=== PATIENT | female | born 1950 | race Caucasian/White ===

== ENCOUNTER 2018-01-27 14:07 | Emergency (ER) | payer MEDICARE, MEDICAID ==
[2018-01-27] MEDS ORDERED: Albuterol/Ipratropium 3.0-0.5 MG/3 ML Neb Soln NEB ONE (15:36)
[2018-01-27] MEDS ORDERED: methylPREDNISolone Sodium Succinate 125 MG/2 ML SDV IVPUSH ONE (15:36)
[2018-01-27 15:49] VITALS: BP 114/52
[2018-01-27] MEDS: Sodium Chloride 0.9% 10 ML Syringe FLUSH PRN ×2 (16:09→17:20)
[2018-01-27] MEDS ORDERED: Furosemide 40 MG/4 ML VIAL IVPUSH ONE (16:35)
[2018-01-27] MEDS ORDERED: cefTRIAXone 1 GM in Sodium Chloride 0.9% 100 ML IV ONE (16:36)
--- NOTE | 2018-01-27 17:48 | EDM.PDOC ---
ED HPI GENERAL MEDICAL PROBLEM - General Chief Complaint: Respiratory Problem Stated Complaint: fever, SOB Time Seen by Provider: 01/27/18 14:20 Source of Information: Reports: Other (retirement staff) History Limitations: Reports: Altered Mental Status - History of Present Illness INITIAL COMMENTS - FREE TEXT/NARRATIVE: Patient referred to ER from [facility] after episode of increased SOB (RR 40)and lower O2 sats (in 80s). Patient does not normally require oxygen. Staff took BP on site and noted systolic reading near 200, however EMS crew noted systolic in 130s during transfer. Patient did have large episode of diarrhea as well as one emesis prior to EMS transfer. Received Zofran. Patient has cognitive deficit secondary to previous strokes and is unable to give accurate history. Denied all problems during ROS. She denied feeling SOB while experiencing elevated respiratory rate and using accessory muscles to breath. Staff at [facility] did not note any other unusual changes. Patient appeared to be in usual health earlier in the day prior to the above episode. Full code per NH record. Onset: Sudden Treatments GLASS ETCHER: Reports: Other (see below) Other Treatments GLASS ETCHER: zofran - Related Data Allergies Allergy/AdvReac Type Severity Reaction Status Date / Time doxycycline Allergy Rash Verified 12/24/15 11:32 nicotine [From Habitrol] Allergy Rash Verified 12/24/15 11:32 Home Meds: Home Meds Citalopram Hydrobromide [Celexa] 20 mg PO DAILY 07/15/15 [History] Aspirin [Ecotrin] 81 mg PO DAILY 10/30/15 [History] Clopidogrel [Plavix] 75 mg PO DAILY 10/30/15 [History] Isosorbide Mononitrate [Imdur] 30 mg PO DAILY 10/30/15 [History] amLODIPine [Norvasc] 2.5 mg PO DAILY 10/30/15 [History] atorvaSTATin [Lipitor] 40 mg PO BEDTIME 10/30/15 [History] Acetaminophen 650 mg PO Q4HR PRN 12/24/15 [History] Albuterol/Ipratropium [DuoNeb 3.0-0.5 MG/3 ML] 3 ml NEB Q4HRRT PRN 12/24/15 [ History] Metoprolol Tartrate 50 mg PO BID 12/24/15 [History] Nitroglycerin [Nitrostat] 0.4 mg SL Q5M PRN 12/24/15 [History] hydrOXYzine Pamoate [Vistaril] 25 mg PO BID 12/24/15 [History] Acetaminophen 650 mg PO Q6HR PRN 01/27/18 [History] Bisacodyl [Dulcolax] 5 mg PO Q12H PRN 01/27/18 [History] Calcium Carbonate [Tums] 1,000 mg PO Q6H 01/27/18 [History] Cholecalciferol (Vitamin D3) [Vitamin D3] 2,000 unit PO DAILY 01/27/18 [History] Cranberry Extract [Cranberry] 1,000 mg PO BID 01/27/18 [History] Mirtazapine [Remeron] 15 mg PO BEDTIME 01/27/18 [History] Ondansetron [Zofran ODT] 8 mg PO Q6H PRN 01/27/18 [History] Sennosides [Senna] 2 tab PO BID 01/27/18 [History] Past Medical History HEENT History: Reports: Allergic Rhinitis, Impaired Vision, Other (See Below) Other HEENT History: Dry eye syndrome Cardiovascular History: Reports: Arrhythmia, CAD, Heart Valve Replacement, High Cholesterol, Syncope, Other (See Below) Other Cardiovascular History: 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 Respiratory History: Reports: COPD, Intubation, Previous, Pneumothorax, Pulmonary Fibrosis, Other (See Below) Other Respiratory History: Possible left upper lobe pulmonary nodule/mass by chest x-ray on 06/21/15 with no known follow up Gastrointestinal History: Reports: None Genitourinary History: Reports: Acute Renal Failure, Chronic Renal Insuffiency, Retention, Urinary, Urinary Incontinence, UTI, Recurrent, Other (See Below) Other Genitourinary History: Chronic renal insufficiency with acute renal failure in June 2015 [employer]GAL [employer] MANAGER History: Reports: Other (See Below) Other OB/BYN History: Symptomatic enlarged uterus, rectocele, and cystocele requiring surgery as below Musculoskeletal History: Reports: Fracture, Osteoarthritis, Osteoporosis Neurological History: Reports: CVA Other Neuro History: Cerebral atrophy and cerebral microvascular disease by CT scan Psychiatric History: Reports: Anxiety, Dementia Endocrine/Metabolic History: Reports: None Hematologic History: Reports: None Immunologic History: Reports: None Oncologic (Cancer) History: Reports: None Dermatologic History: Reports: None - Infectious Disease History Infectious Disease History: Reports: Chicken Pox, Mumps - Past Surgical History Head Surgeries/Procedures: Reports: None HEENT Surgical History: Reports: Oral Surgery, Tonsillectomy Cardiovascular Surgical History: Reports: Valve Replacement GI Surgical History: Reports: Colonoscopy Endocrine Surgical History: Reports: None Neurological Surgical History: Reports: None Musculoskeletal Surgical History: Reports: Carpal Tunnel, Ganglion Cyst, Hip Replacement Oncologic Surgical History: Reports: None Dermatological Surgical History: Reports: None - Past Imaging History Past Imaging History: Reports: Angiography, Cardiac Echo, CAT Scan, Mammogram, MRI, Swallow Study Social & Family History - Family History Cardiac: Reports: CAD, High Cholesterol, Hypertension, [place] Neurological: Reports: CVA, MS, Parkinson's Oncologic: Reports: Colon - Tobacco Use Smoking Status *Q: Former Smoker Used Tobacco, but Quit: Yes Month/Year Tobacco Last Used: 1 - Living Situation & Occupation Living situation: Reports: Single, Extended Care Facility Occupation: Employed ED ROS GENERAL - Review of Systems Review Of Systems: Unable To Obtain (see HPI for information from NH/EMS. Unable to get accurate ROS from patient.) ED EXAM, GENERAL - Physical Exam Exam: See Below Exam Limited By: Physical Impairment (left sided weakness) General Appearance: Alert, Obese, Other (appears mildly SOB) Eye Exam: Bilateral Eye: EOMI Ears: Normal External Exam, Normal Canal, Hearing Grossly Normal, Normal TMs Nose: No: Nasal Deformity, Nasal Swelling, Nasal Drainage Throat/Mouth: Normal Lips, Normal Gums, Normal Oropharynx, Normal Voice, No Airway Compromise Head: Atraumatic, Normocephalic Neck: Supple, Full Range of Motion. No: Lymphadenopathy (L), Lymphadenopathy (R ) Respiratory/Chest: Decreased Breath Sounds (throughout), Rales (bases), Rhonchi (bilateral, increased on left), Wheezing (bilateral, increased on left), Accessory Muscle Use (mild). No: Stridor, Retractions Cardiovascular: Normal Peripheral Pulses, Regular Rate, Rhythm Peripheral Pulses: 2+: Radial (L), Radial (R), Dorsalis Pedis (L), Dorsalis Pedis (R) GI/Abdominal: Normal Bowel Sounds, Soft, Non-Tender, No Distention (Female) Exam: Deferred Rectal (Female) Exam: Deferred Back Exam: No: CVA Tenderness (L), CVA Tenderness (R), Muscle Spasm, Paraspinal Tenderness, Vertebral Tenderness Extremities: Normal Capillary Refill, Other (left sided weakness arm/leg) Neurological: Alert, Sensory/Motor Deficit (left sided weakness), Other ( Patient knows she is at [facility] ER. Does not know year/month. Recalls that her son is in the [place] this weekend. ) Psychiatric: Normal Affect, Normal Mood Skin Exam: Warm, Dry, Intact, Normal Color Course - Vital Signs Last Recorded V/S: Last Vital Signs Temp 38.6 C H 01/27/18 14:07 Pulse 66 01/27/18 15:48 Resp 27 H 01/27/18 15:48 BP 114/52 L 01/27/18 15:48 Pulse Ox 91 L 01/27/18 15:48 - Orders/Labs/Meds Orders: Active Orders 24 hr Category Date Time Status RT Aerosol Therapy [RC] ASDIRECTED Care 01/27/18 15:36 Active CXR [Chest 1V Frontal] [CR] Stat Exams 01/27/18 14:15 Taken Sodium Chloride 0.9% [Saline Flush] Med 01/27/18 15:36 Active 10 ml FLUSH ASDIRECTED PRN Saline Lock Insert [OM.PC] Stat Oth 01/27/18 15:36 Ordered Medication Orders Sodium Chloride (Saline Flush) 10 ml FLUSH ASDIRECTED PRN PRN Reason: Keep Vein Open Last Admin: 01/27/18 17:20 Dose: 10 ml Admin: 01/27/18 16:09 Dose: 10 ml Labs: Laboratory Tests 01/27/18 01/27/18 01/27/18 Range/Units 14:50 15:00 15:00 WBC 13.7 H (4.0-10.2) K/uL RBC 4.74 (3.77-5.09) M/uL Hgb 14.0 (11.7-15.5) g/dL Hct 43.1 (34.0-46.0) % MCV 90.9 (84.0-98.0) fL MCH 29.5 (28.2-33.3) pg MCHC 32.5 (31.7-36.0) g/dL RDW 14.8 H (11.2-14.1) % Plt Count 112 L (150-350) K/uL Neut % (Auto) 92.9 H (45.0-80.0) % Lymph % (Auto) 2.9 L (10.0-50.0) % Pierce % (Auto) 2.1 (2.0-14.0) % Eos % (Auto) 2.0 (0.0-5.0) % Baso % (Auto) 0.1 (0.0-2.0) % Neut # (Auto) 12.76 H (1.40-7.00) K/uL Lymph # (Auto) 0.40 L (0.50-3.50) K/uL Pierce # (Auto) 0.29 (0.00-1.00) K/uL Eos # (Auto) 0.28 (0.00-0.50) K/uL Baso # (Auto) 0.01 (0.00-0.20) K/uL D-Dimer, Quantitative (0-400) ng/mL Sodium 141 (136-145) mmol/L Potassium 4.5 (3.5-5.1) mmol/L Chloride 108 H (98-107) mmol/L Carbon Dioxide 21.6 (21.0-32.0) mmol/L BUN 30 H (7-18) mg/dL Creatinine 1.78 H (0.51-1.17) mg/dL Est Cr Clr Drug Dosing 26.84 mL/min Estimated GFR (MDRD) 28 mL/min Glucose 100 (74-106) mg/dL Lactic Acid (0.4-2.0) mmol/L Calcium 8.4 L (8.5-10.1) mg/dL Total Bilirubin 0.6 (0.2-1.0) mg/dL AST 19 (15-37) U/L ALT 21 (12-78) U/L Alkaline Phosphatase 164 H (46-116) IU/L NT-Pro-B Natriuret Pep (0-125) pg/mL Total Protein 7.2 (6.4-8.2) g/dL Albumin 3.5 (3.4-5.0) g/dL Specimen Type Urinqcath Urine Color Yellow Urine Appearance Slightly cloudy Urine pH 5.0 (5.0-9.0) Ur Specific [place] 1.020 (1.005-1.030) Urine Protein 100 H (NEGATIVE) mg/dL Urine Glucose (UA) Negative (NEGATIVE) mg/dL Urine Ketones Negative (NEGATIVE) mg/dL Urine Occult Blood Moderate H (NEGATIVE) Urine Nitrite Positive H (NEGATIVE) Urine Bilirubin Negative (NEGATIVE) Urine Urobilinogen 0.2 (0.2-1.0) E.U./dL Ur Leukocyte Esterase Trace H (NEGATIVE) Urine RBC Cancelled Urine WBC Cancelled Ur Epithelial Cells Cancelled Other Crystals Cancelled Amorphous Sediment Cancelled Urine Bacteria Cancelled Hyaline Casts Cancelled Granular Casts Cancelled Urine Mucus Cancelled Urine Other Cancelled Urine Yeast Cancelled Urinalysis Comment Cancelled 01/27/18 01/27/18 01/27/18 Range/Units 15:00 15:00 15:00 WBC (4.0-10.2) K/uL RBC (3.77-5.09) M/uL Hgb (11.7-15.5) g/dL Hct (34.0-46.0) % MCV (84.0-98.0) fL MCH (28.2-33.3) pg MCHC (31.7-36.0) g/dL RDW (11.2-14.1) % Plt Count (150-350) K/uL Neut % (Auto) (45.0-80.0) % Lymph % (Auto) (10.0-50.0) % Pierce % (Auto) (2.0-14.0) % Eos % (Auto) (0.0-5.0) % Baso % (Auto) (0.0-2.0) % Neut # (Auto) (1.40-7.00) K/uL Lymph # (Auto) (0.50-3.50) K/uL Pierce # (Auto) (0.00-1.00) K/uL Eos # (Auto) (0.00-0.50) K/uL Baso # (Auto) (0.00-0.20) K/uL D-Dimer, Quantitative > 5000 H (0-400) ng/mL Sodium (136-145) mmol/L Potassium (3.5-5.1) mmol/L Chloride (98-107) mmol/L Carbon Dioxide (21.0-32.0) mmol/L BUN (7-18) mg/dL Creatinine (0.51-1.17) mg/dL Est Cr Clr Drug Dosing mL/min Estimated GFR (MDRD) mL/min Glucose (74-106) mg/dL Lactic Acid 2.3 H (0.4-2.0) mmol/L Calcium (8.5-10.1) mg/dL Total Bilirubin (0.2-1.0) mg/dL AST (15-37) U/L ALT (12-78) U/L Alkaline Phosphatase (46-116) IU/L NT-Pro-B Natriuret Pep 3802 H (0-125) pg/mL Total Protein (6.4-8.2) g/dL Albumin (3.4-5.0) g/dL Specimen Type Urine Color Urine Appearance Urine pH (5.0-9.0) Ur Specific [place] (1.005-1.030) Urine Protein (NEGATIVE) mg/dL Urine Glucose (UA) (NEGATIVE) mg/dL Urine Ketones (NEGATIVE) mg/dL Urine Occult Blood (NEGATIVE) Urine Nitrite (NEGATIVE) Urine Bilirubin (NEGATIVE) Urine Urobilinogen (0.2-1.0) E.U./dL Ur Leukocyte Esterase (NEGATIVE) Urine RBC Urine WBC Ur Epithelial Cells Other Crystals Amorphous Sediment Urine Bacteria Hyaline Casts Granular Casts Urine Mucus Urine Other Urine Yeast Urinalysis Comment Meds: Medications Generic Name Dose Route Start Last Admin Trade Name Markus PRN Reason Stop Dose Admin Sodium Chloride 10 ml 01/27/18 15:36 01/27/18 17:20 Saline Flush FLUSH 10 ml ASDIRECTED PRN Administration Keep Vein Open Discontinued Medications Generic Name Dose Route Start Last Admin Trade Name Markus PRN Reason Stop Dose Admin Albuterol/Ipratropium 3 ml 01/27/18 15:36 01/27/18 16:09 Duoneb 3.0-0.5 Mg/3 Ml NEB 01/27/18 15:37 3 ml ONETIME ONE Administration Furosemide 40 mg 01/27/18 16:35 01/27/18 17:20 Lasix IVPUSH 01/27/18 16:36 40 mg NOW ONE Administration Ceftriaxone Sodium 1 gm/ 100 mls @ 200 mls/hr 01/27/18 16:36 01/27/18 17:20 Sodium Chloride IV 01/27/18 17:05 200 mls/hr ONETIME ONE Administration Methylprednisolone Sodium Succinate 125 mg 01/27/18 15:36 01/27/18 16:09 Solu-Medrol IVPUSH 01/27/18 15:37 125 mg ONETIME ONE Administration - Radiology Interpretation Free Text/Narrative:: Poor quality xray due to portable nature/patient not able to sit up well/poor inspiration. Cannot exclude infiltrate. Appears to have changes suggesting CHF. - Re-Assessments/Exams Free Text/Narrative Re-Assessment/Exam: 01/27/18 18:02 Patient had another large loose stool in ER shortly after arrival. Given neb/ solumedrol/lasix. Mild temperature elevation noted. Elevated BNP/DDimer/BUN/Cr. WBC 13,000 Platelets decreased. Review of previous DDImers show that they were also elevated several years ago, but not to this extent. No history of prior PE given. Patient on Plavix. Radiology did not recommend CT PE scan given patient's chronic kidney disease and elevated BUN/Cr. Suspect that patient could have gastroenteritis and CHF exacerbation. Cannot rule out PE fully however, even though patient is on Plavix and is having gastroenteritis-like symptoms. Discussed workup with patient's son. He would like her sent to [place] to be treated in case she requires a VQ scan to rule out possible PE being present. Call placed to [facility] and patient discussed with . She accepted the patient and plans were made for transfer to their facility for further workup/evaluation. Rocephin IV given prior to transfer. Patient's respiratory effort appeared improved, although she continued to have some accessory muscle use as well as respiratory rate elevation. Departure - Departure Time of Disposition: 18:00 Disposition: DC/Tfer to Acute Hospital 02 Condition: Good Clinical Impression: Renal insufficiency, Elevated d-dimer CHF (congestive heart failure) Qualifiers: Qualified Code(s): I50.42 - Chronic combined systolic (congestive) and diastolic (congestive) heart failure COPD (chronic obstructive pulmonary disease) Qualifiers: COPD type: unspecified COPD Qualified Code(s): J44.9 - Chronic obstructive pulmonary disease, unspecified Diarrhea Qualifiers: Diarrhea type: unspecified type Qualified Code(s): R19.7 - Diarrhea, unspecified Emesis Qualifiers: Vomiting type: unspecified Vomiting Intractability: unspecified Nausea presence : unspecified Qualified Code(s): R11.10 - Vomiting, unspecified - Discharge Information Referrals: Sheets-Yanna Melendez MD [Primary Care Provider] - Forms: ED Department Discharge - My Orders Last 24 Hours: My Active Orders 01/27/18 14:15 CXR [Chest 1V Frontal] [CR] Stat 01/27/18 15:36 RT Aerosol Therapy [RC] ASDIRECTED Sodium Chloride 0.9% [Saline Flush] 10 ml FLUSH ASDIRECTED PRN Saline Lock Insert [OM.PC] Stat - Assessment/Plan Last 24 Hours: My Active Orders 01/27/18 14:15 CXR [Chest 1V Frontal] [CR] Stat 01/27/18 15:36 RT Aerosol Therapy [RC] ASDIRECTED Sodium Chloride 0.9% [Saline Flush] 10 ml FLUSH ASDIRECTED PRN Saline Lock Insert [OM.PC] Stat
== END 2018-01-27 18:10 ==
LOC: LL.ED 14:07
DX: I50.42 Chronic combined systolic (congestive) and diastolic (congestive) heart failure (principal); I25.10 Atherosclerotic heart disease of native coronary artery without angina pectoris; N18.9 Chronic kidney disease, unspecified; E78.00 Pure hypercholesterolemia, unspecified; J44.9 Chronic obstructive pulmonary disease, unspecified; R79.1 Abnormal coagulation profile; F41.9 Anxiety disorder, unspecified; R19.7 Diarrhea, unspecified; R11.10 Vomiting, unspecified; Z88.8 Allergy status to other drugs, medicaments and biological substances; Z79.82 Long term (current) use of aspirin; Z79.899 Other long term (current) drug therapy; Z87.891 Personal history of nicotine dependence; Z79.01 Long term (current) use of anticoagulants; Z99.81 Dependence on supplemental oxygen
CPT/HCPCS: 36415; 71045; 80053; 81003; 83605; 83880; 85025; 85379; 94640; 96365; 96375; 99285; J0696; J1940; J2930; J7050